=== PATIENT | male | born 1950 | race Caucasian/White ===

== ENCOUNTER 2018-10-11 12:46 | Emergency (ER) | payer SELFPAY ==
[2018-10-11 12:58] VITALS: BMI 27.6
--- NOTE | 2018-10-11 13:21 | PDOC ---
History of Present Illness - General Chief Complaint: Shortness of Breath Stated Complaint: SOB Time Seen by Provider: 10/11/18 13:20 Past History - Past Medical History Allergies/Adverse Reactions: Allergies Allergy/AdvReac Type Severity Reaction Status Date / Time No Known Allergies Allergy Verified 10/11/18 12:56 Home Medications: Ambulatory Orders Acetaminophen with Codeine [Tylenol with Codeine #3 Tablet] 1 each PO Q6H PRN # 15 tablet MDD 4 10/11/18 Apixaban [Eliquis -] 2.5 mg PO BID 10/11/18 Benzonatate [Tessalon Pearls -] 100 mg PO TID PRN #21 capsule 10/11/18 Clopidogrel Bisulfate [Plavix -] 75 mg PO DAILY 10/11/18 Fenofibrate Nanocrystallized [Fenofibrate] mg PO DAILY 10/11/18 Isosorbide Mononitrate [Imdur -] 30 mg PO DAILY 10/11/18 Levothyroxine [Synthroid -] 25 mcg PO DAILY 10/11/18 Metoprolol Succinate [Toprol Xl -] mg PO DAILY 10/11/18 Cardiac Disorders: Yes COPD: No HTN: Yes Hypercholesterolemia: Yes - Suicide/Smoking/Psychosocial Hx Smoking History: Never smoked *Physical Exam - Vital Signs Last Vital Signs Temp Pulse Resp BP Pulse Ox 98.3 F 85 22 H 122/65 100 10/11/18 12:56 10/11/18 12:56 10/11/18 12:56 10/11/18 12:56 10/11/18 12:56 Moderate Sedation - Procedure Monitoring Vital Signs: Procedure Monitoring Vital Signs Temperature 98.3 F 10/11/18 12:56 Pulse Rate 85 10/11/18 12:56 Respiratory Rate 22 H 10/11/18 12:56 Blood Pressure 122/65 10/11/18 12:56 O2 Sat by Pulse Oximetry (%) 100 10/11/18 12:56 Procedures - Additional Procedures Progress: Ultrasound Guided IV Line Placement PROCEDURE NOTE: IV Placement under Ultrasound Guidance PROCEDURE TERMITE TECHNICIAN: Lico Schmidt M.D. Resident Indication: IV access required. Multiple attempts at peripheral IV placement were made without success Procedure: The area was prepped in the usual fashion. The L basilic vein was cannulated with a 20 gauge angiocath with use of dynamic ultrasound to identify the vein. The patient tolerated the procedure well. Complications: none ED Treatment Course - LABORATORY CBC & Chemistry Diagram: 10/11/18 13:34 10/11/18 13:34 - ADDITIONAL ORDERS Additional order review: 10/11/18 10/11/18 14:00 13:34 PT with INR 13.20 H INR 1.12 H PTT (Actin FS) 32.9 Sodium 138 Potassium 4.5 Chloride 108 H Carbon Dioxide 24 Anion Gap 6 L BUN 24 H Creatinine 1.1 Creat Clearance w eGFR > 60 Random Glucose 99 Calcium 8.9 Creatine Kinase 67 Troponin I < 0.02 B-Natriuretic Peptide 125.4 H 10/11/18 13:34 RBC 4.03 MCV 89.1 MCHC 34.8 RDW 14.9 MPV 7.4 L Neutrophils % 51.1 Lymphocytes % 38.0 Monocytes % 8.6 Eosinophils % 1.8 Basophils % 0.5 - RADIOLOGY Radiology Studies Ordered: Category Date Time Status CHEST CTA [CT] Stat CT Scan 10/11/18 13:59 Taken Radiograph Interpretation: CTA of Chest w/ PE Protocol: Foreign Saul MD wrote on Oct 11, 2018 at 07:04 PM: Referring Physician: BISHOP CASEY Patient Name: ELIZABEHT SHARMA THIS IS A PRELIMINARY REPORT FROM [facility] DATE OF SERVICE: 2018-10-11 15:27:40 IMAGES: [id number] Exam: CT angiogram of the thorax using pulmonary embolus protocol Clinical indication:Shortness of breath. Evaluate for pulmonary emboli. Recent surgery. Prior studies:None available. Technique: Axial IV contrast-enhanced CT images of the thorax using pulmonary embolism protocol were performed. In addition, maximum projection maximum intensity pixel multiplanar imaging of the thorax were obtained for increased anatomic detail and diagnostic interpretation. Findings: There are no pulmonary emboli. The pulmonary parenchyma is clear. The visualized portions of the airway are within normal limits without focal abnormality. There is no pleural abnormality. There are no enlarged axillary, hilar or mediastinal lymph nodes, by size criteria. The mediastinal structures are within normal limits. There are multiple simple hepatic cysts. There are also multiple hepatic hypodensities which are too small to characterize. The remainder of the visualized portions of the upper abdomen are unremarkable. The visualized bony structures are within normal limits for the patient's age. Impression: 1. No pulmonary emboli. 2. Unremarkable CT of the thorax. One or more of the following dose reduction techniques were used: automated exposure control, adjustment of the mA and/or kV according to patient size, use of iterative reconstructive technique. THIS DOCUMENT HAS BEEN ELECTRONICALLY SIGNED Foreign Saul MD 10/11/2018 18:02 [facility] - Medications Given in the ED: ED Medications Discontinued Medications Generic Name Dose Route Start Last Admin Trade Name Freq PRN Reason Stop Dose Admin Lactated Ringer's 1,000 ml 10/11/18 14:11 10/11/18 16:13 Lactated Ringers Solution IV 10/11/18 14:12 1,000 ml ONCE ONE Administration *DC/Admit/Observation/Transfer Diagnosis at time of Disposition: Atypical chest pain, Shortness of breath, Cough - Discharge Dispostion Disposition: HOME Condition at time of disposition: Good Decision to Admit order: No - Prescriptions Prescriptions: Acetaminophen with Codeine [Tylenol with Codeine #3 Tablet] 1 each PO Q6H PRN # 15 tablet MDD 4 PRN Reason: Cough Benzonatate [Tessalon Pearls -] 100 mg PO TID PRN #21 capsule PRN Reason: Cough - Referrals - Patient Instructions Printed Discharge Instructions: Cough, DI for Atypical Chest Pain Additional Instructions: You were seen today for shortness of breath for the past several weeks. Your CTA of your chest did not show any evidence of a pulmonary embolism. Your blood work was normal. Your EKG did not show any evidence of acute ischemia. I sent a prescription for Tessalon Pearls and Tylenol with Codeine to your pharmacy. Take as directed on the label. Do not take more than the recommended dose. Follow up with your communications instructor and your primary care doctor within the next 3- 4 days. Copies of todays results have been attached to this packet. Take it with you so your doctors can review them. Go to the nearest emergency department if your condition worsens or you feel like you need additional emergency evaluation. Print Language: NORTHER[place] IRISH - Post Discharge Activity
[2018-10-11 14:11] LABS: BASO % 0.5 % (0-2.0); EOS % 1.8 % (0-4.5); HEMATOCRIT 35.9 % (35.4-49); HEMOGLOBIN 12.5 GM/dL (11.7-16.9); MCHC 34.8 g/dl (32.0-35.9); MEAN CELL VOLUME 89.1 fl (80-96); MEAN PLT VOLUME 7.4 fl (7.5-11.1); MONO % 8.6 % (3.8-10.2); NEUT % 51.1 % (42.8-82.8); PLATELET COUNT 197 K/MM3 (134-434); RBC 4.03 M/mm3 (4.00-5.60); RDW 14.9 % (11.9-15.9); WHITE BLOOD COUNT 5.3 K/mm3 (4.0-10.0)
[2018-10-11] MEDS ORDERED: LACTATED RINGERS SOLUTION 1000 ML INFUS.BAG IV ONE (14:11)
[2018-10-11 14:37] LABS: ANION GAP 6 MMOL/L (8-16); BLOOD UREA NITROGEN 24 mg/dL (7-18); CALCIUM 8.9 mg/dL (8.5-10.1); CHLORIDE 108 mmol/L (98-107); CO2 24 mmol/L (21-32); CREATININE 1.1 mg/dL (0.55-1.3); GLUCOSE,RANDOM 99 mg/dL (74-106); N-TERMINAL BNP 125.4 pg/ml (5-125); POTASSIUM 4.5 mmol/L (3.5-5.1); SODIUM 138 mmol/L (136-145)
[2018-10-11 14:37] LABS: INR 1.12 (0.83-1.09); PROTHROMBIN TIME (PATIENT) 13.2 SEC (9.7-13.0)
[2018-10-11 14:39] LABS: ACTIVATED PTT 32.9 SECONDS (25.2-36.5)
[2018-10-11 17:17] VITALS: TEMP 99
--- NOTE | 2018-10-11 17:48 | PDOC ---
Attending Attestation - Resident Resident Name: Lico Schmidt - ED Attending Attestation I have performed the following: I have examined & evaluated the patient, The case was reviewed & discussed with the resident, I agree w/resident's findings & plan, Exceptions are as noted - HPI HPI: 10/11/18 17:40 The patient is a 68 year old male, with a significant past medical history of HTN, HLD, CAD (s/p cardiac stenting 2009), and DVT (on Eliquis and Plavix; known DVT RLE), who presents to the emergency department with nonproductive cough and AUGUSTIN. As per patient, he recently had a right knee replacement a week ago and his symptoms started approximately 4 days after. Patient was seen at his PCP office for his symptoms and was prescribed a Z-pack, which did not help. Pt states that his cough is his main concern. He notes that when he coughs , he feels SOB but denies any SOB when he is able to breathe normally. He denies any chest pain, palpitations, or diaphoresis. He denies any recent fevers, chills, headache or dizziness. He denies any recent nausea, vomit, diarrhea or constipation. He denies any recent dysuria, frequency, urgency or hematuria. Allergies: NKDA Past surgical history: Total right knee replacement (10/2018). Social History: Nonsmoker. Denies EtOH use and recreational drug use. Familial History: DVT - Physicial Exam PE: 10/11/18 17:42 Agree with resident exam - Medical Decision Making 10/11/18 17:42 68 M with dry cough associated with SOB. Will need to r/o PE given h/o DVT and recent surgery. Also consider ACS and CHF given h/o cardiac stents. Will also r/ o PNA. - Labs, BNP, trop - CTA chest Pt signed out to oncoming attending, pending CTA, labs, and re-evaluation.
--- NOTE | 2018-10-11 19:33 | PDOC ---
*Physical Exam - Vital Signs Last Vital Signs Temp Pulse Resp BP Pulse Ox 99.0 F 87 16 115/72 99 10/11/18 17:16 10/11/18 17:16 10/11/18 17:16 10/11/18 17:16 10/11/18 17:16 ED Treatment Course - LABORATORY CBC & Chemistry Diagram: 10/11/18 13:34 10/11/18 13:34 - ADDITIONAL ORDERS Additional order review: Laboratory Results 10/11/18 10/11/18 14:00 13:34 PT with INR 13.20 H INR 1.12 H PTT (Actin FS) 32.9 Sodium 138 Potassium 4.5 Chloride 108 H Carbon Dioxide 24 Anion Gap 6 L BUN 24 H Creatinine 1.1 Creat Clearance w eGFR > 60 Random Glucose 99 Calcium 8.9 Creatine Kinase 67 Troponin I < 0.02 B-Natriuretic Peptide 125.4 H 10/11/18 13:34 RBC 4.03 MCV 89.1 MCHC 34.8 RDW 14.9 MPV 7.4 L Neutrophils % 51.1 Lymphocytes % 38.0 Monocytes % 8.6 Eosinophils % 1.8 Basophils % 0.5 - Medications Given in the ED: ED Medications Discontinued Medications Generic Name Dose Route Start Last Admin Trade Name Freq PRN Reason Stop Dose Admin Lactated Ringer's 1,000 ml 10/11/18 14:11 10/11/18 16:13 Lactated Ringers Solution IV 10/11/18 14:12 1,000 ml ONCE ONE Administration Medical Decision Making - Medical Decision Making 10/11/18 19:27 Sign-out received from outgoing Emergency Physician Dr. Dennis Pt interviewed and examined Ancillary studies reviewed Case discussed in detail with oncoming Emergency Physician including history, physical exam and ancillary studies. This is a 68 year old male with cardiac disease, hx of blood clots with recent knee surgery presents with 3 weeks of cough, and chest pain with coughing. Pt reports that he has had this chest pain that persisted for 3 weeks. Chest pain not constant. Not pressure-like. CTA is negative for PE. CBC, BMP 10/11/18 13:34 10/11/18 13:34 CMP Sodium 138 mmol/L (136-145) 10/11/18 13:34 Potassium 4.5 mmol/L (3.5-5.1) 10/11/18 13:34 Chloride 108 mmol/L (98-107) H 10/11/18 13:34 Carbon Dioxide 24 mmol/L (21-32) 10/11/18 13:34 Anion Gap 6 MMOL/L (8-16) L 10/11/18 13:34 BUN 24 mg/dL (7-18) H 10/11/18 13:34 Creatinine 1.1 mg/dL (0.55-1.3) 10/11/18 13:34 Creat Clearance w eGFR > 60 (>60) 10/11/18 13:34 Random Glucose 99 mg/dL (74-106) 10/11/18 13:34 Calcium 8.9 mg/dL (8.5-10.1) 10/11/18 13:34 Creatine Kinase 67 U/L (26-308) 10/11/18 13:34 Troponin I < 0.02 ng/ml (0.00-0.05) 10/11/18 13:34 B-Natriuretic Peptide 125.4 pg/ml (5-125) H 10/11/18 13:34 Trop is negative. ECG from 13:00: NSR 86 no std/alesia, TWI III, QTC 452 msec, normal ECG. Though patient has risk factors for ACS, the history seems atypical for ACS. 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 He will call on Saturday. The patient is reliable and I feel comfortable discharging him. Chest pain worsens with cough. Pt reports that codeine had helped with his cough. I'll write a prescription for tylenol with codeine and tesallon pearles. Return precautions given. *DC/Admit/Observation/Transfer Diagnosis at time of Disposition: Atypical chest pain - Discharge Dispostion Disposition: HOME Condition at time of disposition: Stable Decision to Admit order: No - Prescriptions Prescriptions: Acetaminophen with Codeine [Tylenol with Codeine #3 Tablet] 1 each PO Q6H PRN # 15 tablet MDD 4 PRN Reason: Cough Benzonatate [Tessalon Pearls -] 100 mg PO TID PRN #21 capsule PRN Reason: Cough - Referrals - Patient Instructions Printed Discharge Instructions: DI for Atypical Chest Pain Additional Instructions: Your EKG is normal. Your troponin is negative. Your Chest CT shows no blood clot. Your cough may be contributing to your chest pain. Please take tylenol with codeine every 6 hours as needed for cough. You may also take Tessalon Pearle 100 mg every 8 hours as needed. Follow up with your truck headlight assembler this Saturday. If you have worsening chest pain, please return to the ER. - Post Discharge Activity
[2018-10-11 19:53] VITALS: BP 118/70; PULSE 72
--- NOTE | 2018-10-13 10:46 | EKG ---
Test Reason : Blood Pressure : / mmHG Vent. Rate : 086 BPM Atrial Rate : 086 BPM P-R Int : 152 ms QRS Dur : 088 ms QT Int : 378 ms P-R-T Axes : 045 -13 002 degrees QTc Int : 452 ms NORMAL SINUS RHYTHM NORMAL ECG NO PREVIOUS ECGS AVAILABLE Confirmed by ISSAC OCHOA MD ([id number]) on 10/13/2018 10:45:59 AM Referred By: Confirmed By:ISSAC OCHOA MD
== END 2018-10-11 19:54 | disposition home or self-care (01) ==
LOC: JER 12:46
DX: R07.9 Chest pain, unspecified (principal); R05 Cough; R06.02 Shortness of breath; I25.10 Atherosclerotic heart disease of native coronary artery without angina pectoris; I10 Essential (primary) hypertension; Z95.5 Presence of coronary angioplasty implant and graft; Z86.718 Personal history of other venous thrombosis and embolism; Z79.01 Long term (current) use of anticoagulants; Z96.651 Presence of right artificial knee joint
CPT/HCPCS: 36415; 71275-TC; 80048; 82550; 83880; 84484; 85025; 85610; 85730; 93005; 93010; 99283-25